=== PATIENT | female | born 1965 | race Caucasian/White ===

== ENCOUNTER 2018-11-14 09:56 | Outpatient (RCR) | payer OTHER | END 2018-11-16 | LOC: OT 09:56 | PROVIDERS: ATTEND Orthopaedic Surgery | DX: M67.432 Ganglion, left wrist (principal) ==

== ENCOUNTER 2018-12-10 10:00 | Outpatient (RCR) | payer OTHER | END 2018-12-17 | LOC: OT 10:00 | PROVIDERS: ATTEND Orthopaedic Surgery | DX: M67.432 Ganglion, left wrist (principal) ==

== ENCOUNTER 2019-01-16 10:49 | Outpatient (RCR) | payer OTHER | END 2019-01-17 | LOC: PT 10:49 | PROVIDERS: ATTEND Psychiatry & Neurology Neurology | DX: M21.371 Foot drop, right foot (principal); G54.1 Lumbosacral plexus disorders; S34.4XXD Injury of lumbosacral plexus, subsequent encounter | CPT/HCPCS: 97110; 97162; G0283 ==

== ENCOUNTER 2019-02-09 10:43 | Outpatient (RCR) | payer OTHER | END 2019-02-16 | LOC: PT 10:43 | PROVIDERS: ATTEND Psychiatry & Neurology Neurology | DX: M21.371 Foot drop, right foot (principal); G54.1 Lumbosacral plexus disorders; S34.4XXD Injury of lumbosacral plexus, subsequent encounter | CPT/HCPCS: 97110 ×6; 97139; G0283 ×2 ==